=== PATIENT | male | born 1965 | race Caucasian/White ===

== ENCOUNTER 2018-02-03 16:08 | Emergency (ER) | payer BC, MEDICAID ==
[~2018-02-03] VITALS: Ht 195.6 cm; Wt 112.0 kg
[2018-02-03] MEDS ORDERED: ASPIRIN 81MG TABLET PO ONE (17:45)
[2018-02-03 18:19] LABS: BASOPHILS % 0.9 % (0.0-2.0); EOSINOPHILS % 3.4 % (0.0-5.0); HEMATOCRIT. 40.5 % (42.0-52.0); LYMPHOCYTES % 32.8 % (20.0-50.0); MEAN CORPUSCULAR HEMOGLOBIN 30.4 pg (28.0-32.0); MEAN CORPUSCULAR VOLUME 88.2 fL (80.0-94.0); MEAN PLATELET VOLUME 9.8 fl (7.4-10.4); MONOCYTES % 7.7 % (2.0-8.0); NEUTROPHILS % 55.2 % (40.0-76.0); PLATELET 252 x1000/uL (130-400); RED BLOOD CELL COUNT 4.59 mill/uL (4.7-6.1); RED CELL DISTRIBUTION WIDTH 13.1 % (11.6-14.6)
[2018-02-03 18:21] LABS: CHLORIDE 101 mEq/L (98-107)
[2018-02-03 18:22] LABS: INR 1.2; PROTHROMBIN TIME 12.6 sec (9.4-11.6)
[2018-02-04 01:24] VITALS: BP 131/83
== END 2018-02-04 01:35 | disposition home or self-care (01) ==
LOC: ER 17:38
DX: R07.89 Other chest pain (principal); E78.00 Pure hypercholesterolemia, unspecified; I10 Essential (primary) hypertension
CPT/HCPCS: 36415; 71045; 80053; 83690; 83880; 84484; 85025; 85610; 93005; 99285; Z7610